=== PATIENT | female | born 1995 | race Caucasian/White ===

== ENCOUNTER 2019-12-14 08:11 | Outpatient (CLI) | payer OTHER, SELFPAY ==
--- NOTE | ~2019-12-14 | US_ITS ---
EXAMINATION: US transvaginal DATE: 12/14/2019 08:37 INDICATION: Pelvic and peroneal pain Comparison:09/07/2019 TECHNIQUE: Multiple endovaginal sonographic images of the pelvis performed. FINDINGS: The uterus measures 7.4 x 3.4 x 4.3 cm. There is in IUD in the endometrium. The endometrial complex measures 3 mm. The right ovary measures 3.2 x 2.1 x 3.2 cm and the left ovary measures 3 x 2.8 x 4.1 cm. There are small follicles in each ovary. There is a complicated 1.7 cm left ovarian cysts There is no free fluid in the pelvis. There are no abnormal masses seen on either side. IMPRESSION: 1. . Complicated 1.7 cm left ovarian cyst. Reviewed, dictated and finalized at location A.
== END 2019-12-14 08:12 ==
PROVIDERS: Visit Provider Obstetrics & Gynecology Gynecology
DX: R10.2 Pelvic and perineal pain (principal); N83.202 Unspecified ovarian cyst, left side
CPT/HCPCS: 76830

== ENCOUNTER 2021-05-16 10:58 | Outpatient (RCR) | payer OTHER, SELFPAY ==
--- NOTE | ~2021-05-16 | US_ITS ---
EXAMINATION: US OB limited DATE: 05/16/2021 12:53 INDICATION: Placental assessment and well-being after fall during third trimester TECHNIQUE: Real-time ultrasound of the pelvis was performed. The interpreting radiologist was not pre sent for the study. COMPARISON: 12/14/2019 FINDINGS: There is a single living fetus in vertex presentation. The placenta is anterior. card iac activity and movement are noted. heart rate is 150 beats per minute (bpm). The amniot ic fluid index is subjectively normal. IMPRESSION: 1. Single living fetus in vertex presentation. 2. Grossly normal placenta without evidence of previa or abruption. However, acute hemorrhage can be isoechoic to the placenta. Recommend continued clinical followup. Reviewed, dictated and finalized at location A. IMPRESSION: 1. Single living fetus in vertex presentation. 2. Grossly normal placenta without evidence of previa or abruption. However, a cute hemorrhage can be isoechoic to the placenta. Recommend continued clinical followup.
--- NOTE | 2021-05-16 12:35 | PC.NURSE ---
1227-Dr.Dalla Sosa called, informed pt came in as instructed by his office for a post fall from this am. Pt states she fell hard on her back and butt. Denies hitting her abdomen, pt states she has RH negative blood type and denies any cramping or gypsy. Pt feels some pressure in her vaginal area. FHR is appropriate for gestational age and no contractions noted. Robyn velez and US ordered.
[2021-05-16 12:36] VITALS: BP 130/71; PULSE 88
== END 2021-08-14 23:59 | disposition home or self-care (01) ==
LOC: ANHOBOP 10:58
PROVIDERS: Visit Provider Obstetrics & Gynecology
DX: O99.892 Other specified diseases and conditions complicating childbirth (principal); W19.XXXA Unspecified fall, initial encounter; Z3A.25 25 weeks gestation of pregnancy
CPT/HCPCS: 36415; 59025; 76815; 85460

== ENCOUNTER 2021-06-29 08:39 | Outpatient (RCR) | payer OTHER, SELFPAY ==
[2021-07-02] MEDS: RHO(D) IMMUNE GLOBULIN 300 MCG/2 ML SYRINGE IM (08:56)
== END 2021-09-27 23:59 | disposition home or self-care (01) ==
LOC: ANHLAB 08:39
PROVIDERS: Visit Provider Obstetrics & Gynecology
DX: Z29.13 Encounter for prophylactic Rho(D) immune globulin (principal); O36.0190 Maternal care for anti-D [Rh] antibodies, unspecified trimester, not applicable or unspecified; Z3A.00 Weeks of gestation of pregnancy not specified
CPT/HCPCS: 36415; 85461; 90384; 96372; J2790

== ENCOUNTER 2021-07-22 13:34 | Outpatient (CLI) | payer OTHER, SELFPAY ==
--- NOTE | ~2021-07-22 | US_ITS ---
EXAMINATION: US OB BPP wo non-stress EXAM DATE: 07/22/2021 14:54 INDICATION: non-reactive stress test. 3rd trimester. TECHNIQUE: Pelvic obstetrical transabdominal sonogram was performed by a technologist. There are mu ltiple grayscale and Doppler images available for interpretation. Comparison is made to prior examina tion from 05/16/2021. FINDINGS: There is a single fetus identified in vertex presentation with a heart rate of 148 beats pe r minute. The placenta is located in the anterior position. There is no sonographic evidence of retr oplacental hemorrhage identified. BIOPHYSICAL PROFILE (performed by the technologist) breathing (30 sec sustained breathing in 30 minutes): 2 out of 2 movement (3 gross body movements in 30 minutes): 2 out of 2 tone (one episode of crresnc-bvjfqtlxe-sekprpz limb movement): 2 out of 2 Amniotic fluid pocket (2 cm): 2 out of 2 Total score: 8 out of 8 IMPRESSION: 1. Single fetus with heart rate of 148 bpm. 2. Normal biophysical profile score of 8 out of 8. Reviewed, dictated and finalized at location A. [employer]
[2021-07-22 14:09] VITALS: BP 119/74; PULSE 110
--- NOTE | 2021-07-22 14:54 | PM.OBTRLD ---
OB - Triage/Final Diagnosis Visit Information Date of evaluation: 07/22/21 Reason for evaluation: threatened labor and other (r/o PPROM) Comments/Additional reasons for admission: I have assessed the risk for this patient, Radha Eliud Chaney, and determined that she would benefit from observation care. Evaluation Baseline heart rate: 150 Variability: Moderate (11-25) monitor accelerations: Absent monitor decelerations: Variable Comments: BPP was performed and scored an 8/8 with adequate amniotic fluid.
[2021-07-22 16:00] LABS: Add Urine Microscopic? YES; Appearance Urine Clear (Clear); Bilirubin Urine Negative (Negative); Blood Urine Negative (Negative); Color Urine Straw (Yellow); Glucose Urine UA 1+ mg/dL (Negative); Ketones Urine Negative (Negative); Leukocyte Esterase Ur Negative LEU/UL (Negative); Nitrate Urine Negative (Negative); Protein Urine Negative (Negative); RBC Urine 0-2 /hpf (0-2); Specific Grav Ur 1.003 (1.001-1.035); Squamous Epithelial Cell Urine Few /hpf (Few); Urobilinogen Urine Negative mg/dL (<2.0); WBC Urine 0-3 /hpf
== END 2021-07-22 15:00 | disposition home or self-care (01) ==
PROVIDERS: Visit Provider Student in an Organized Health Care Education/Training Program
DX: O41.8X90 Other specified disorders of amniotic fluid and membranes, unspecified trimester, not applicable or unspecified (principal); Z3A.00 Weeks of gestation of pregnancy not specified
CPT/HCPCS: 59025; 76819; 81001; 84112

== ENCOUNTER 2021-08-16 05:53 | Inpatient (IN) | payer OTHER, SELFPAY ==
[2021-08-16] VITALS (77 sets, daily range): BP systolic 84–159; BP diastolic 44–102; PULSE 69–117; RESP 16–18; TEMP 36.4–37.4; O2SAT 97–100; BMI 33.7
--- NOTE | 2021-08-16 06:23 | PM.IMHP ---
H&P: HPI History of Present Illness Date/Time: 08/16/21 06:23 Issue to her last menstrual period was 11/20/2020, EDC is 08/27/2021, confirmed by 11 week ultrasound presents at 38 half weeks gestation for induction of labor secondary to elevated blood pressures. Patient's had been fairly unremarkable she received COVID vaccine in April 2021. Her blood pressures elevated PIH labs have been normal however with some mild headache and near term she is admitted for induction secondary to these elevated pressures. She is negative for group B strep Chief Complaint: elevated blood pressure at term Review of Systems Review of Systems: All systems reviewed & are unremarkable except as noted in HPI and below PMFSH Family History Family History Father Lupus Grandparent Prostate carcinoma Other Heart disease Social History Social History Substance use: never Spiritual care concerns: No Meds Home Medications and Allergies Home Medications Medication Instructions Recorded Confirmed Type prenat.vits,milli,vyw-kjcs-lezvl 1 tablet PO DAILY 08/04/21 08/04/21 History [ #2] Allergies Allergy/AdvReac Type Severity Reaction Status Date / Time No Known Allergies Allergy Unknown Verified 11/01/14 15:22 Exam Const: General: no acute distress Eyes: General: appearance normal, both eyes and all related structures Neck: Neck: supple and no JVD Thyroid: thyroid normal Resp: Effort & Inspection: normal respiratory effort Auscultation: clear to auscultation bilaterally Cardio: Rate: regular rate Rhythm: regular rhythm GI: Inspection: non-distended GI Palp: Yes Soft to palpation, No Tenderness to palpation present (GI) and No Guarding due to palpation present (GI) Auscultation: normal bowel sounds : External Female Exam: normal external appearance Speculum Exam - Vagina: normal appearance of the vagina Speculum Exam - Cervix: normal appearance of the cervix ( cervix 2/ 80/-1. AROM clear. FHT is reassuring) Bimanual exam- vagina & uterus: enlarged Skin: General skin exam: no rashes or lesions noted Extrem: General: normal to inspection and no edema Psych: Mental Status: mental status grossly normal Affect: normal affect Assessment and Plan Additional Plan impression: 30 and half week with elevated blood pressures Plan: Medical for labor. Spontaneous read full delivery is expected. She has an epidural candidate. PIH labs will be drawn
[2021-08-16 06:45] LABS: Basophils Percent Auto 0.2 % (0.2-1.2); Eosinophils Percent Auto 0.5 % (0-4.4); Hematocrit 31.4 % (37.0-47.0); Hemoglobin 10.5 g/dL (12.0-15.0); Immature Granulocyte Absolute 0.04 K/mm3 (0.00-0.031); Immature Granulocyte Percent A 0.5 % (0-0.5); Lymphocytes Absolute Auto 1.79 K/mm3 (0.9-3.2); Lymphocytes Percent Auto 21.4 % (18.3-44.2); Mean Corpuscular HGB Conc 33.4 g/dl (32-36); Mean Corpuscular Hemoglobin 28.4 pg (26-34); Mean Corpuscular Volume 84.9 fl (80-100); Mean Platelet Volume 12.2 fl (7.4-10.4); Monocytes Absolute Auto 0.7 K/mm3 (0.1-0.6); Monocytes Percent Auto 7.8 % (2.6-8.5); Neutrophils Absolute Auto 5.8 K/mm3 (1.3-6.7); Neutrophils Percent Auto 69.6 % (45.5-73.1); Platelet Count Result 199 k/mm3 (150-375); Red Cell Distribution Width 14.2 % (11.5-14.5); White Blood Count 8.4 K/mm3 (4.5-10.0)
[2021-08-16] MEDS: OXYTOCIN 30 UNITS/NS 500 ML 30 UNITS/500 ML BAG IV CONT (06:49)
[2021-08-16] MEDS: LACTATED RINGERS 1,000 ML 125 ML IV CONT ×3 (06:50→13:33)
--- NOTE | 2021-08-16 07:02 | LDADM ---
This patient, Radha Chaney, was admitted to Labor/Delivery/Recovery 104 on 08/16/21 at 05:53. Plans for labor, pain management and were discussed with patient. Patient/family oriented to hospital policies and general routines including ID bracelet, bed and alarms, visiting hours, pain management, procedures, bathroom and other care routines, personal items, smoking policy, room service/diet and guest tray routines, infant security routines, and visiting hours. Patient/Family are encouraged to report perceived risks to care and to ask questions if they do not understand what they are told or what they should do. See OBIX for further documentation.
[2021-08-16 07:08] LABS: Alanine Aminotransferase 25 U/L (4-35); Albumin Level 3.2 g/dL (3.5-5.1); Alkaline Phosphatase 206 U/L (38-126); Anion Gap 6 mmol/L (8-16); Aspartate Amino Transferase 38 U/L (14-36); Bilirubin,Total 0.3 mg/dL (0.2-1.3); Calcium 8.3 mg/dL (8.4-10.2); Carbon Dioxide 25 mmol/L (22-30); Chloride 100 mmol/L (98-107); Estimated CRCL calculation 154 ml/min; Estimated Glomerular Filt Rate > 60; Glucose 137 mg/dL (65-110); Potassium 2.2 mmol/L (3.4-5.0); Sodium 131 mmol/L (137-145); Uric Acid 4.6 mg/dL (2.5-7.5)
[2021-08-16] MEDS: POTASSIUM CHLORIDE 20 MEQ TABLET PO (08:47)
[2021-08-16 09:36] LABS: Potassium 2.3 mmol/L (3.4-5.0)
--- NOTE | 2021-08-16 09:36 | WPDANESEPP ---
Anes - Eval Pre Procedure Procedure: labor epidural Date/Time: 08/16/21 09:36 Surgeon: harjit Preop Diagnosis: pain during labor Pre Op Diagnosis: IOL Patient Data Age: 25 Gender: F Height: 1.63 m Weight: 89 kg Last Vital Signs Temp 36.5 C 08/16/21 08:30 Pulse 88 08/16/21 09:16 BP 133/62 08/16/21 09:16 Allergies Allergy/AdvReac Type Severity Reaction Status Date / Time No Known Allergies Allergy Unknown Verified 11/01/14 15:22 Home Medications Medication Instructions Recorded Confirmed Type prenat.vits,milli,ksi-jfmy-ztjim 1 tablet PO DAILY 08/04/21 08/04/21 History [ #2] Laboratory Tests 08/16/21 08/16/21 08/16/21 06:17 06:17 06:17 WBC 8.4 K/mm3 K/mm3 (4.5-10.0) RBC 3.70 M/mm3 L M/mm3 (4.2-5.4) Hgb 10.5 g/dL L g/dL (12.0-15.0) Hct 31.4 % L % (37.0-47.0) MCV 84.9 fl fl (80-100) MCH 28.4 pg pg (26-34) MCHC 33.4 g/dl g/dl (32-36) RDW 14.2 % % (11.5-14.5) Plt Count 199 k/mm3 k/mm3 (150-375) MPV 12.2 fl H fl (7.4-10.4) Immature Gran % (Auto) 0.5 % % (0-0.5) Neut % (Auto) 69.6 % % (45.5-73.1) Lymph % (Auto) 21.4 % % (18.3-44.2) [place] % (Auto) 7.8 % % (2.6-8.5) Eos % (Auto) 0.5 % % (0-4.4) Baso % (Auto) 0.2 % % (0.2-1.2) Lymph # (Auto) 1.79 K/mm3 K/mm3 (0.9-3.2) [place] # (Auto) 0.7 K/mm3 H K/mm3 (0.1-0.6) Eos # (Auto) 0.0 K/mm3 K/mm3 (0-0.3) Baso # (Auto) 0.0 K/mm3 K/mm3 (0.0-0.1) Abs Immat Gran (auto) 0.04 K/mm3 H K/mm3 (0.00-0.031) Absolute Neuts (auto) 5.8 K/mm3 K/mm3 (1.3-6.7) Absolute Nucleated RBC 0.0 K/mm3 K/mm3 (0.0-0.012) Nucleated RBC % 0.0 % % (0.0-0.2) Sodium 131 mmol/L L mmol/L (137-145) Potassium 2.2 mmol/L L* mmol/L (3.4-5.0) Chloride 100 mmol/L mmol/L (98-107) Carbon Dioxide 25 mmol/L mmol/L (22-30) Anion Gap 6 mmol/L L mmol/L (8-16) BUN Pending Creatinine 0.50 mg/dL L mg/dL (0.7-1.0) Estim Creat Clear Calc 154 ml/min ml/min Estimated GFR > 60 (59 - ) Glucose 137 mg/dL H mg/dL (65-110) Uric Acid 4.6 mg/dL mg/dL (2.5-7.5) Calcium 8.3 mg/dL L mg/dL (8.4-10.2) Total Bilirubin 0.3 mg/dL mg/dL (0.2-1.3) AST 38 U/L H U/L (14-36) ALT 25 U/L U/L (4-35) Alkaline Phosphatase 206 U/L H U/L (38-126) Total Protein 6.0 g/dL L g/dL (6.3-8.2) Albumin 3.2 g/dL L g/dL (3.5-5.1) RPR Pending 08/16/21 09:18 WBC RBC Hgb Hct MCV MCH MCHC RDW Plt Count MPV Immature Gran % (Auto) Neut % (Auto) Lymph % (Auto) [place] % (Auto) Eos % (Auto) Baso % (Auto) Lymph # (Auto) [place] # (Auto) Eos # (Auto) Baso # (Auto) Abs Immat Gran (auto) Absolute Neuts (auto) Absolute Nucleated RBC Nucleated RBC % Sodium Potassium 2.3 mmol/L L* mmol/L (3.4-5.0) Chloride Carbon Dioxide Anion Gap BUN Creatinine Estim Creat Clear Calc Estimated GFR Glucose Uric Acid Calcium Total Bilirubin AST ALT Alkaline Phosphatase Total Protein Albumin RPR Patient hx anesthesia problems: none Family hx anesthesia problems: none Results Review: All pre-operative results and documents have been reviewed as part of the pre-operative evaluation. COUNT INCLUDES THE [facility] Past Medical History Medical History (Updated 08/16/21 @ 09:37 by Charlotte Berg CRNA) IUP (intrauterine ), incidental Family History Family History (Reviewed 08/16/21 @ 06:24 by Hayden
[2021-08-16 09:57] LABS: Blood Urea Nitrogen < 2 mg/dL (7-17)
[2021-08-16 13:25] LABS: Rapid Plasma Reagin Non-Reactive (NonReactive)
--- NOTE | 2021-08-16 14:51 | PM.OBPNLAB ---
Pain Control Date/time seen: 08/16/21 14:51 Pain control: tolerating well and epidural Pelvic Exam Dilation (cm): 3 Effacement (%): 90 station: -1 Amniotic membrane status: Ruptured Contractions Monitor mode: Internal Contraction pattern: Regular
[2021-08-16] MEDS: ONDANSETRON INJ 4 MG/2 ML VIAL IV PUSH (15:37)
--- NOTE | 2021-08-16 18:16 | P.PCNOB_ITS ---
OB - Delivery Note Procedure Procedure: Patient pushed for a spontaneous vaginal delivery. The fetus was delivered atraumatically and placed on the maternal abdomen. The cord was clamped and cut after 1 minute of life. The cord was double clamped and cut and a segment of cord was collected for cord gases. Cord blood was collected for blood type and Coomb's testing. The placenta delivered spontaneously and was noted to be intact. The perineum was inspected and there were no lacerations noted. The uterus was firm and good hemostasis was noted. The patient and fetus were stable in the delivery room. events: Induced HTN Intrapartal events: None Induction method: per pitocin protocol Delivery augmentation: rupture of membranes Delivery monitor: external FHT Route of delivery: Episiotomy description: None Laceration Description: None Specimen: No Quantitative Blood Loss (ml): 150 Anesthesia type: Epidural Disposition: floor () Complications: No immediate complications [place] Baby Date of : 08/16/21 Time of : 08:06 Weeks of gestation at delivery: 38 gender: Male Weight (pounds): 6 Weight (ounces): 12 presentation: vertex position: Right Occiput Anterior Placenta delivery description: Spontaneous cord vessel description: 3 Vessels and Nuchal Cord score one minute: 9 score five minutes: 9
[2021-08-16] MEDS: OXYTOCIN 30 UNITS/NS 500 ML 30 UNITS/500 ML BAG 125 UNITS IV CONT (18:29)
[2021-08-16] MEDS: TRANEXAMIC ACID 1,000MG/ISO100 1,000 MG/100 ML BAG 200 MG IVPB (18:51)
[2021-08-16] MEDS: BENZOCAINE 20% AER SPR (*SP) 56 GM CAN 1 SPRAY TOPICAL (20:26)
[2021-08-16] MEDS: IBUPROFEN 600 MG TABLET PO (20:26)
[2021-08-16] MEDS: WITCH HAZEL 40 PADS 1 PAD TOPICAL (20:26)
--- NOTE | 2021-08-16 21:03 | OBPPTRN ---
Patient transferred to post room #291 via wheelchair. Support person present. Oriented to unit, room, information board, rooming in, admission packet and security measures. Patient verbalizes understanding.
[2021-08-16] MEDS: POTASSIUM CHLORIDE 20 MEQ PACKET (FOR LIQUID) 80 MEQ PO (21:20)
[2021-08-17 00:20] VITALS: BP 129/70; PULSE 77; RESP 16; TEMP 37.1
[2021-08-17 05:45] VITALS: BP 133/87; PULSE 77; RESP 16; TEMP 36.8
[2021-08-17] MEDS: IBUPROFEN 600 MG TABLET PO ×3 (05:55→21:50)
[2021-08-17 06:00] LABS: Hematocrit 31.5 % (37.0-47.0); Hemoglobin 10.3 g/dL (12.0-15.0)
[2021-08-17 06:22] LABS: Anion Gap 4 mmol/L (8-16); Calcium 8.4 mg/dL (8.4-10.2); Carbon Dioxide 26 mmol/L (22-30); Chloride 106 mmol/L (98-107); Estimated CRCL calculation 154 ml/min; Estimated Glomerular Filt Rate > 60; Glucose 75 mg/dL (65-110); Potassium 2.7 mmol/L (3.4-5.0); Sodium 136 mmol/L (137-145)
[2021-08-17 06:24] LABS: Blood Urea Nitrogen < 2 mg/dL (7-17)
--- NOTE | 2021-08-17 07:03 | PM.OBPNVD ---
OB - PN: Subj Subjective Date/time seen: 08/17/21 07:03 Patient comments: no complaints and pain well controlled baby status: doing well and nursing well OB - PN: Obj Data Labs CBC & Chem 7: 08/17/21 05:49 08/17/21 05:49 Labs: Laboratory Results - last 24 hr 08/16/21 08/16/21 08/16/21 06:17 06:17 06:17 Hgb Hct Sodium 131 L Potassium 2.2 L* Chloride 100 Carbon Dioxide 25 Anion Gap 6 L BUN < 2 L Creatinine 0.50 L Estim Creat Clear Calc 154 Estimated GFR > 60 Glucose 137 H Uric Acid 4.6 Calcium 8.3 L Total Bilirubin 0.3 AST 38 H ALT 25 Alkaline Phosphatase 206 H Total Protein 6.0 L Albumin 3.2 L RPR Non-reactive Blood Type O Negative Antibody Screen Positive Antibody Identification Inconclusive Antigen Identification TNP SOPHIA, IgG Interpret Not Performed SOPHIA, Poly Interpret Negative SOPHIA, Complement Interp Not Performed 08/16/21 08/17/21 08/17/21 09:18 05:49 05:49 Hgb 10.3 L Hct 31.5 L Sodium 136 L Potassium 2.3 L* 2.7 L* Chloride 106 Carbon Dioxide 26 Anion Gap 4 L BUN < 2 L Creatinine 0.50 L Estim Creat Clear Calc 154 Estimated GFR > 60 Glucose 75 Uric Acid Calcium 8.4 Total Bilirubin AST ALT Alkaline Phosphatase Total Protein Albumin RPR Blood Type Antibody Screen Antibody Identification Antigen Identification SOPHIA, IgG Interpret SOPHIA, Poly Interpret SOPHIA, Complement Interp OB - PN A/P Plan day: 1 Plan: routine care Time Spent With Patient Time: Total time spent is greater than 50% in coordination of care (as documented) at patient's floor/unit and/or counseling patient: Time with patient: less than 15 minutes Review of Systems Review of Systems: All systems reviewed & are unremarkable except as noted in HPI and below Exam Const: General: no acute distress Eyes: General: appearance normal, both eyes and all related structures Neck: Neck: supple and no JVD Thyroid: thyroid normal Resp: Effort & Inspection: normal respiratory effort Auscultation: clear to auscultation bilaterally Cardio: Rate: regular rate Rhythm: regular rhythm GI: Inspection: non-distended GI Palp: Yes Soft to palpation, No Tenderness to palpation present (GI) and No Guarding due to palpation present (GI) Auscultation: normal bowel sounds : General: Yes bladder normal to palpation External Female Exam: normal external appearance Speculum Exam - Vagina: normal vaginal discharge and No vaginal bleeding Speculum Exam - Cervix: nontender Bimanual exam- vagina & uterus: bladder normal to palpation and No Cervical tenderness present OB/external & speculum: No vaginal bleeding Skin: General skin exam: no rashes or lesions noted Extrem: General: normal to inspection and no edema Psych: Mental Status: mental status grossly normal Affect: normal affect
[2021-08-17] MEDS: MULTIVIT/MIN/PREN/FOL AC/IRON TABLET 1 TAB PO (08:17)
[2021-08-17 08:50] VITALS: BP 121/75; PULSE 63; RESP 16; TEMP 36.9; O2SAT 98
[2021-08-17] MEDS: POTASSIUM CHLORIDE 20 MEQ TABLET PO (08:50)
--- NOTE | 2021-08-17 10:03 | WPDANLDPN2 ---
Anes-Prog Note L&D Date/Time: 08/17/21 10:03 Comfortable throughout: labor and delivery Neuraxial method: epidural Epidural/Spinal procedure site: clean & non-tender Neuro status: Neuro function grossly intact. Cardiovascular status: normal Respiratory status: normal Airway patency: baseline Mental status: baseline Post-Op hydration status: normal Vital Signs: Last Vital Signs Temp 36.9 C 08/17/21 08:50 Pulse 63 08/17/21 08:50 Resp 16 08/17/21 08:50 BP 121/75 08/17/21 08:50 Pulse Ox 98 08/17/21 08:50 Pain score (VAS): 0 I/O: Intake & Output 08/16/21 08/17/21 08/17/21 23:59 07:59 15:59 Intake Total 1600 1300 1000 Output Total 1041 1600 900 Balance 559 -300 100 Post-procedural complaints: none Patient feedback: Patient satisfied with anesthetic care.
--- NOTE | 2021-08-17 10:15 | PC.NURSE ---
Mother called out for assist with feeding, reporting has difficulties latching to left breast. Mother has tender nipples with feeding. Mother breastfed first child for several months without issue. is able to freely thrust tongue past gum ridge and flange both lips. Skin is intact on both nipples, slight redness and no bruising noted. Nipple care reviewed of lanolin after feedings, warm compresses as needed. Reviewed feeding cues, frequencies, duration of feedings, feeding elimination flow sheet, and signs of adequate intake. Demonstrated stimulation techniques to wake infant for feeding. Mother puts to breast in cradle position, allowing to self latch with shallow latch. requested mother release latch reviewing cross cradle. Assisted with infant to breast. Reviewed positioning/alignment in cross cradle, holding breast in ?U? hold and guided asymmetrical latch on. Reviewed rational for each. able to latch correctly within a few attempts. nursed eagerly with steady draws and occasional swallowing noted, some pausing noted. Reviewed signs of a correct latch, effective nursing and suck swallow ratio. Suggested mother stimulate while feeding to increase stimulation for milk supply, for increased intake and to assist with maintaining deep latch. Infant would slip to shallow latch causing tenderness. Demonstrated how to adjust latch more deeply while feeding as needed. Mother reports she can feel the difference in latch with no tenderness. Mother wanted to switch to cradle, advised to continue to hold breast during entire feeding to assist with maintaining deep latch. Instructed mother to call out for RN assistance if she is unable to latch infant for feeding or she has discomfort with nursing. Instructed feeding should be initiated three hours from start of last feeding or if feeding cues are noted before. Mother voiced understanding of information shared. Mother reports she plans on discharge later this day. Mother is able to independently latch with appropriate positioning/alignment. She denies any nipple discomfort, is feeding as required and waking infant to feed if needed. Infant is feeding s required since , and is currently meeting outcomes for weight, output, jaundice and feeding frequencies. Mother states she feels confident to continue effective at home. Reviewed transition to breast milk, signs of adequate intake, and engorgement/relief. Instructed to call ICP if intake/output less than required. Reviewed regular medications mother is taking. Information provided per Mary Jo. Reviewed community resources on the [facility] website and in the Mom/Baby guide. Information on outpatient services provided. Mother has no further questions at this time.
[2021-08-17 11:31] VITALS: BP 123/86; PULSE 73; RESP 18; TEMP 36.6; O2SAT 98
[2021-08-17] MEDS: LANOLIN (LANSINOH) 7.5 GM CREAM 1 APPLIC TOPICAL (14:10)
[2021-08-17 16:40] VITALS: BP 133/77; PULSE 76; RESP 16; TEMP 37.1
[2021-08-17 20:40] VITALS: BP 133/73; PULSE 83; RESP 16; TEMP 36.8
[2021-08-18 05:10] VITALS: BP 123/70; PULSE 70; RESP 16; TEMP 36.7
[2021-08-18 05:55] LABS: Anion Gap 1 mmol/L (8-16); Blood Urea Nitrogen 2 mg/dL (7-17); Carbon Dioxide 30 mmol/L (22-30); Chloride 102 mmol/L (98-107); Estimated CRCL calculation 154 ml/min; Estimated Glomerular Filt Rate > 60; Glucose 78 mg/dL (65-110); Potassium 2.7 mmol/L (3.4-5.0); Sodium 133 mmol/L (137-145)
--- NOTE | 2021-08-18 07:13 | PM.OBPNVD ---
OB - PN: Subj Subjective Date/time seen: 08/18/21 07:13 no complaints OB - PN: Obj Data Labs CBC & Chem 7: 08/17/21 05:49 08/18/21 05:23 Labs: Laboratory Results - last 24 hr 08/18/21 05:23 Sodium 133 L Potassium 2.7 L* Chloride 102 Carbon Dioxide 30 Anion Gap 1 L BUN 2 L Creatinine 0.50 L Estim Creat Clear Calc 154 Estimated GFR > 60 Glucose 78 Calcium 8.0 L OB - PN A/P Plan day: 2 Plan: routine care, discharge home and follow up 6 weeks Comments: Potassium still low today after replacement. We will obtain hospitalist consultation prior to discharge Time Spent With Patient Time: Total time spent is greater than 50% in coordination of care (as documented) at patient's floor/unit and/or counseling patient: Time with patient: less than 15 minutes Review of Systems Review of Systems: All systems reviewed & are unremarkable except as noted in HPI and below Exam Const: General: no acute distress Eyes: General: appearance normal, both eyes and all related structures Neck: Neck: supple and no JVD Thyroid: thyroid normal Resp: Effort & Inspection: normal respiratory effort Auscultation: clear to auscultation bilaterally Cardio: Rate: regular rate Rhythm: regular rhythm GI: Inspection: non-distended GI Palp: Yes Soft to palpation, No Tenderness to palpation present (GI) and No Guarding due to palpation present (GI) Auscultation: normal bowel sounds : General: Yes bladder normal to palpation External Female Exam: normal external appearance Speculum Exam - Vagina: normal vaginal discharge and No vaginal bleeding Speculum Exam - Cervix: nontender Bimanual exam- vagina & uterus: bladder normal to palpation and No Cervical tenderness present OB/external & speculum: No vaginal bleeding Skin: General skin exam: no rashes or lesions noted Extrem: General: normal to inspection and no edema Psych: Mental Status: mental status grossly normal Affect: normal affect
[2021-08-18 07:25] VITALS: BP 130/82; PULSE 68; RESP 18; TEMP 37; O2SAT 98
[2021-08-18] MEDS: KCL 20 MEQ/SW 100 ML 100 ML 50 MEQ IVPB ×3 (10:39→14:51)
[2021-08-18] MEDS: IBUPROFEN 600 MG TABLET PO (10:40)
[2021-08-18] MEDS: MULTIVIT/MIN/PREN/FOL AC/IRON TABLET 1 TAB PO (10:40)
[2021-08-18] MEDS: SODIUM CHLORIDE 0.9% IV 1,000 ML 50 ML (11:05)
[2021-08-18 11:33] VITALS: BP 130/78; PULSE 72; RESP 16; TEMP 36.6; O2SAT 97
[2021-08-18 13:45] LABS: Magnesium 1.6 mg/dL (1.6-2.3)
--- NOTE | 2021-08-18 14:00 | PC.NURSE ---
Patient instructed on viewing the discharge video Mother & Baby Care, The First Two Weeks . Patient was given the opportunity and encouraged to ask questions. Patient verbalized understanding of information shared and has been given the mother/baby guide for home reference.
--- NOTE | 2021-08-18 14:36 | PC.NURSE ---
0925 present with pt for baby's feeding at this time; reviewed positioning, alignment, use of c-hold, nose to nipple latch on technique, and how to assess for deep latch, with importance of deep latch and maintained deep latch. Mother reports her L side nipple very sore; baby had nursed on R side for about 5 minutes when nurse came to room; he was awake and eager; baby latched to mother's L side, with apparent deep latch; mother reported definite latch on pain; nurse taught mother how to adjust to deeper latch while on the breast, and after 1-2 minutes, mother reported much less pain, but still some tenderness, but that this latch, definitely the best and most comfortable. Reviewed nipple care. Also reviewed use of feeding log to monitor feedings, 8-12 a day, and output per day of age. Pt shown her Mother Baby Guide, and breast feeding pages flagged for her to review prior to discharge home later today. LC contact information shown to pt as well. Mother was encouraged to call for nurse at the next feeding if still concerns or if she had questions. Mother reports she feels as if her milk is starting to come in. She reports a strong breast feeding history with her first baby. FOB present; both parents attentive and voiced understanding of information shared.
--- NOTE | 2021-08-18 15:18 | P.HP_ITS ---
H&P: HPI History of Present Illness Date/Time: 08/18/21 1400 this is a 25-year-old female patient 2 para 2. Patient EDC was 08/27/2021. The patient stated that she had no problems with her blood pressure until this past week. It was decided that the patient would be induced a week earlier than what had been plan. The patient stated that she was induced with Pitocin and was given trnexamix acid to prevent hemorrhage as she had problems with post hemorrhaging with her 1st son. The patient d enies any nausea vomiting or diarrhea. The patient stated that she vomited 1 time after her epidural was placed but other than that she has not been having any vomiting. No diarrhea and she has not been on any diuretics. The patient had a vaginal delivery on 08/16/[address] xochilt guerrero. Please see delivery note. On 08/16/2021 her potassium was 2.2 and has come up to 2.7 today. The hospitalist group was asked to consult on the patient due to her low potassium. We also decided to check her magnesium which was borderline 1.6. The patient has received 3 doses of 20 mg KCL IV today. The patient was receiving her potassium rider when I entered the room. Patient had no complaints except for some left leg pain and she felt that her left leg was swollen more than normal. Patient stated that she is having some cramping in her legs to the low potassium. Since the patient is borderline on her magnesium I did order 2 g of magnesium IV for the patient. [facility] Past Medical History Medical History (Updated 08/16/21 @ 09:37 by Charlotte Berg CRNA) IUP (intrauterine ), incidental Family History Family History Father Lupus Grandparent Prostate carcinoma Other Heart disease Social History Social History Smoking status: Never smoker Substance use: never Spiritual care concerns: No Meds Home Medications and Allergies Home Medications Medication Instructions Recorded Confirmed Type prenat.vits,milli,msc-tetp-etnqx 1 tablet PO DAILY 08/04/21 08/04/21 History [ #2] Allergies Allergy/AdvReac Type Severity Reaction Status Date / Time No Known Allergies Allergy Unknown Verified 11/01/14 15:22 Vital Signs Vital Signs - 24 hr 08/17/21 16:40 08/17/21 20:40 08/18/21 05:10 Temperature 37.1 C 36.8 C 36.7 C Pulse Rate 76 83 70 Respiratory Rate 16 16 16 Blood Pressure 133/77 133/73 123/70 Pulse Oximetry 08/18/21 07:25 08/18/21 11:33 Temperature 37.0 C 36.6 C Pulse Rate 68 72 Respiratory Rate 18 16 Blood Pressure 130/82 130/78 Pulse Oximetry 98 97 H&P: Results Labs Labs: [facility] 08/18/21 05:23 Sodium 133 L Potassium 2.7 L* Chloride 102 Carbon Dioxide 30 BUN 2 L Creatinine 0.50 L Glucose 78 Calcium 8.0 L
--- NOTE | 2021-08-18 15:30 | PM.IMCN ---
Assessment and Plan Assessment and plan (1) Hypokalemia: Code(s): E87.6 - Hypokalemia Status: Acute Assessment and Plan: Unsure of etiology. The patient has not had any nausea vomiting or diarrhea. No loss of fluids. Replace as necessary. Will also refer replace her magnesium even though was borderline at 1.6. Will recheck again tonight. (2) Anemia: Code(s): D64.9 - Anemia, unspecified Status: Chronic Assessment and Plan: The patient stated that she had anemia peripartum. She stated that she had significant blood loss with her 1st child. However she was given tranexamic acid to prevent hemorrhage. Continue to monitor. The nurse explained to me that the patient had little vaginal bleeding . Continue with vitamins. (3) Hyponatremia: Code(s): E87.1 - Hypo-osmolality and hyponatremia Status: Acute Assessment and Plan: Could be related to Pitocin. She also has some edema to her lower extremities. She may have fluid shifting. (4) PIH ( induced hypertension): Code(s): O13.9 - Gestational [-induced] hypertension without significant proteinuria, unspecified trimester Status: Acute Assessment and Plan: Patient was induced 1 week earlier than previously planned. Patient did not have any problems with her blood pressure prior to the week before delivery. Patient's blood pressure is now 130/78. HPI Data of Consult Consult date: 08/18/21 Requesting Physician: Eduardo Ocasio MD Primary Care Provider: EQUIPMENT INSTALLATION PROFESSIONAL PHYSICIAN Consult Narrative Narrative: 08/18/21 1400 Radha feliciano a this is a 25-year-old female patient 2 para 2. Patient EDC was 08/27/2021. The patient stated that she had no problems with her blood pressure until this past week. It was decided that the patient would be induced a week earlier than what had been plan. The patient stated that she was induced with Pitocin and was given tranexamic acid to prevent hemorrhage as she had problems with post hemorrhaging with her 1st son. The patient denies any nausea vomiting or diarrhea. The patient stated that she vomited 1 time after her epidural was placed but other than that she has not been having any vomiting. No diarrhea and she has not been on any diuretics. The patient had a vaginal delivery on 08/16/[address] xochilt guerrero. Please see delivery note. On 08/16/2021 her potassium was 2.2 and has come up to 2.7 today. The hospitalist group was asked to consult on the patient due to her low potassium. We also decided to check her magnesium which was borderline 1.6. The patient has received 3 doses of 20 mg KCL IV today. The patient was receiving her potassium rider when I entered the room. Patient had no complaints except for some left leg pain and she felt that her left leg was swollen more than normal. Patient stated that she is having some cramping in her legs to the low potassium. Since the patient is borderline on her magnesium I did order 2 g of magnesium IV for the patient. The patient was admitted to inpatient and the hospitalist group has seen the patient as a consult. Review of Systems Review of Systems: All systems reviewed & are unremarkable except as noted in HPI and below Constitutional: Constitutional: Reports as per HPI and Reports no additional constitutional complaints Eyes: Eyes: Reports as per HPI and Reports no additional eye complaints ENT: Reports system reviewed and no additional complaints, except as documented and Reports Normal hearing present Cardiovascular: Cardiovascular: Reports no additional cardiovascular complaints Respiratory: Respiratory: Reports no additional respiratory complaints and Reports no additional respiratory complaints Gastrointestinal: Gastrointestinal: Reports as per HPI and Reports no additional gastrointestinal complaints Musculoskeletal: Musculoskeletal: Reports n
[2021-08-18] MEDS: TETANUS,DIPHTHERIA,AC PERTUSSIS ADULT (0.5 ML) BOOSTRIX IM (16:54)
[2021-08-18] MEDS: MAGNESIUM OXIDE 400 MG TABLET PO (16:59)
--- NOTE | 2021-08-21 09:40 | PM.DS ---
DS: Admitting Diagnosis Discharge Date 08/18/21 Admitting Diagnosis term with elevated blood pressure /hypokalemia DS: Summary Hospital Course Hospital Course: the patient was admitted for induction of labor secondary to elevated blood pressures. She underwent spontaneous vaginal delivery. It was noted her potassium was 2.2 and she really received several doses of oral potassium and it improved to 2.7. Consultation was made with hospitalist and she was given IV potassium. They suggested that she have a magnesium level and be followed and she refused. She will be followed up within a week to see another potassium level Time Spent with Patient Time attestation: Total time spent providing and/or coordinating discharge services: Exam Const: General: no acute distress Eyes: General: appearance normal, both eyes and all related structures Neck: Neck: supple and no JVD Thyroid: thyroid normal Resp: Effort & Inspection: normal respiratory effort Auscultation: clear to auscultation bilaterally Cardio: Rate: regular rate Rhythm: regular rhythm GI: Inspection: non-distended GI Palp: Yes Soft to palpation, No Tenderness to palpation present (GI) and No Guarding due to palpation present (GI) Auscultation: normal bowel sounds : General: Yes bladder normal to palpation External Female Exam: normal external appearance Speculum Exam - Vagina: normal vaginal discharge and No vaginal bleeding Speculum Exam - Cervix: nontender Bimanual exam- vagina & uterus: bladder normal to palpation and No Cervical tenderness present OB/external & speculum: No vaginal bleeding Skin: General skin exam: no rashes or lesions noted Extrem: General: normal to inspection and no edema Psych: Mental Status: mental status grossly normal Affect: normal affect Discharge Plan Discharge Attending physician on discharge: Eduardo Ocasio Consulting providers: Charu Tracey Discharging Clinician: Eduardo Ocasio Patient Disposition: Home, Self-Care Activity: pelvic rest Diet: regular Discharge Instructions: Education: Mom and Baby Guide Given to: Mother Follow-Up: Call your delivering provider's office for an appointment to be seen in: Saturday or Saturday next week Mom and baby should come to the [facility] for the follow-up appointment. Appointment Date/Time: August 21, 2021 at 11:00 am What to expect at your follow-up visit: Physical Assessment Call [phone] if you are unable to keep your appointment time. BREAST CARE: * Wear a snug supportive bra. * For engorgement discomfort: Breast Feeding: * Apply warm moist washcloths * Express milk as needed to relieve engorgement * Wear loose clothing * For sore nipples: * Identify correct latch-on * Apply warm moist washcloths before and after nursing * Air dry nipples after nursing * May apply Lansinoh cream to nipples EPISIOTOMY/PERINEAL CARE: * Until bleeding stops, use your nicolasa bottle after urinating * Change your pad frequently throughout the day * You may take sitz baths several times a day (fill your bathtub with warm water and soak for 20 minutes.) Do NOT bathe in the water * No tub baths until seen by your physician - You may shower ACTIVITY: * Rest as much as possible. * Do not exercise or lift anything heavier than your baby (such as laundry or other children.) * Avoid stairs or driving as much as possible. * Do not put anything into the vagina. No douching, tampons, or sexual activity until seen by physician. NOTIFY PHYSICIAN IF YOU HAVE ANY QUESTIONS OR IF ANY OF THE FOLLOWING SYMPTOMS OCCUR: * If your vaginal bleeding becomes foul smelling. * If your vaginal bleeding becomes more heavy than a period or if your bleeding changes from pink to bright red. However, you may pass an occasional walnut-sized clot once or twice for the first week post
[2021-08-21 11:16] VITALS: BP 143/88; PULSE 88; RESP 20; TEMP 36.8; O2SAT 100
== END 2021-08-18 17:47 | disposition home or self-care (01) | DRG 806 ==
LOC: ANHLDR 05:59 → ANHOB2 22:05
PROVIDERS: Hospitalist; Student in an Organized Health Care Education/Training Program; Admitting Provider Obstetrics & Gynecology; Visit Provider Obstetrics & Gynecology
DX: O16.4 Unspecified maternal hypertension, complicating childbirth (principal); E87.1 Hypo-osmolality and hyponatremia; Z37.0 Single live birth; Z3A.38 38 weeks gestation of pregnancy; O13.4 Gestational [pregnancy-induced] hypertension without significant proteinuria, complicating childbirth; O69.81X0 Labor and delivery complicated by cord around neck, without compression, not applicable or unspecified; O99.02 Anemia complicating childbirth; D64.9 Anemia, unspecified; E87.6 Hypokalemia
CPT/HCPCS: 36415; 80048; 80053; 83735; 84132; 84550; 85014; 85018; 85025; 86592; 86850; 86880; 86900; 86901; 86902; 90715; A9270; J2405; J2590; J2795; J3480; J7030; J7120

== ENCOUNTER 2021-08-21 11:00 | Outpatient (CLI) | payer OTHER, SELFPAY ==
[2021-08-21 11:51] LABS: Alanine Aminotransferase 31 U/L (4-35); Albumin Level 3.1 g/dL (3.5-5.1); Alkaline Phosphatase 143 U/L (38-126); Anion Gap 5 mmol/L (8-16); Aspartate Amino Transferase 36 U/L (14-36); Bilirubin,Total 0.3 mg/dL (0.2-1.3); Blood Urea Nitrogen 4 mg/dL (7-17); Calcium 8.3 mg/dL (8.4-10.2); Carbon Dioxide 30 mmol/L (22-30); Chloride 104 mmol/L (98-107); Estimated Glomerular Filt Rate > 60; Glucose 84 mg/dL (65-110); Potassium 3.2 mmol/L (3.4-5.0); Sodium 139 mmol/L (137-145)
== END 2021-08-21 11:01 | disposition home or self-care (01) ==
LOC: ANHOBOP 11:03
PROVIDERS: Visit Provider Obstetrics & Gynecology
DX: E87.6 Hypokalemia (principal)
CPT/HCPCS: 36415; 80053

== ENCOUNTER 2021-12-29 01:22 | Day surgery (SDC) | payer OTHER, SELFPAY ==
[2021-12-20 12:58] VITALS: BMI 29.2
--- NOTE | 2021-12-20 13:05 | PC.NURSE ---
Report to the Outpatient Waiting Room, entrance under the green pavilion located off [facility], at time 0930 on date 12/29/21. OR Time: 1130. - You and your visitor will be asked a series of questions to screen for COVID 19 for your protection. - A mask is required within the hospital. One visitor will be allowed to accompany the patient into the hospital. Patients visitor will be instructed to remain with patient at all times or leave the building. We will allow the visitor to come back to the postoperative area when patient is ready. Preoperative COVID Testing Requirements: No COVID Test needed if: (proof is required; if not received patient will have Rapid Test prior to entry) - Patient has received COVID Vaccine at least 14 days prior to procedure date or - Patient has positive COVID test result within last 90 days of surgery date. COVID Test needed if above criteria is not met Patients may have clear liquids (water, carbonated beverages, clear teas, apple juice) until 3 hours prior to surgery with a maximum of 20 ounces. - No food from midnight until time of surgery Take the following medications with a SIP of water the morning of surgery: NONE Medications to discontinue per physician: VITAMINS Date to take last dose: 12/25/21 Please no make-up, nail armenian, hairspray, perfume, deodorant, or body powder the day of surgery. No jewelry (including any body piercings) or valuables the day of surgery, leave them at home. Please take a shower or bath the night before, or the morning of, surgery with an antibacterial soap. Wear comfortable, loose fitting clothing. - Jewelry must be removed prior to entering the operating room. Rings and piercings that are not removed may be cut off. - The hospital will not accept responsibility for valuables. - Please leave all valuables, including medications, at home the day of surgery. If you are going home after surgery, a licensed milk driver must drive you home. - NO public transportation without another adult. - We recommend that an adult stay with you for 24 hours following discharge. - We also recommend that you do not drive, make important decision, drink alcoholic beverages, or take any drugs that were not prescribed by your health care provider for at least 24 hours after your discharge time. Follow any additional instructions given to you from your surgeon. Telephone instructions given to LEONA WALKER and asked if any additional questions and then verbalized understanding. Patient advised to call surgeon office or pre surgery nurse liaison [phone] if any additional questions.
--- NOTE | 2021-12-28 08:28 | P.HP_ITS ---
H&P: HPI History of Present Illness Date/Time: 26-year-old multiparous admitted for laparoscopic tubal ligation. She desires permanent and irreversible sterilization. Alternatives including but not exclusive of pills patches, injections, implants etc. reviewed. She understands the failure rate to be 10/999 and the subsequent risk of the failure rate and risk of ectopic . Risks And benefits of this procedure were reviewed in great detail. She had all questions answered and asked to proceed she did received the [employer]CO[employer] handout entitled sterilization for men and women Chief Complaint: Desires permanent sterilization Review of Systems Review of Systems: All systems reviewed & are unremarkable except as noted in HPI and below PMFSH Past Medical History Medical History Anemia IUP (intrauterine ), incidental Surgical History Surgical History No pertinent past surgical history Family History Family History Father Lupus Alcohol abuse Grandparent Prostate carcinoma Other Heart disease Social History Social History Social History: The patient is and has 2 children. 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 She does not use any alcohol marijuana or illicit drugs. 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 Code status full code Smoking status: Never smoker Alcohol intake: current Alcohol use details: 1/MONTH Substance use: never Substance use type: does not use Living arrangements: with family Spiritual care concerns: No Meds Home Medications and Allergies Home Medications Medication Instructions Recorded Confirmed Type prenat.vits,milli,dpr-vnei-emwiz 1 tablet PO DAILY 08/04/21 12/20/21 History Allergies Allergy/AdvReac Type Severity Reaction Status Date / Time No Known Allergies Allergy Unknown Verified 12/20/21 12:58 Exam Const: General: no acute distress Eyes: General: appearance normal, both eyes and all related structures Neck: Neck: supple and no JVD Thyroid: thyroid normal Resp: Effort & Inspection: normal respiratory effort Auscultation: clear to auscultation bilaterally Cardio: Rate: regular rate Rhythm: regular rhythm GI: Inspection: non-distended GI Palp: Yes Soft to palpation, No Tenderness to palpation present (GI) and No Guarding due to palpation present (GI) Auscultation: normal bowel sounds : General: Yes bladder normal to palpation External Female Exam: normal external appearance Speculum Exam - Vagina: normal vaginal discharge and No vaginal bleeding Speculum Exam - Cervix: nontender Bimanual exam- vagina & uterus: bladder normal to palpation and No Cervical tenderness present OB/external & speculum: No vaginal bleeding Skin: General skin exam: no rashes or lesions noted Extrem: General: normal to inspection and no edema Psych: Mental Status: mental status grossly normal Affect: normal affect Assessment and Plan Additional Plan Impression: Desires permanent sterilization Plan: Laparoscopic tubal ligation
[2021-12-29] VITALS (13 sets, daily range): BP systolic 110–151; BP diastolic 53–90; PULSE 72–689; RESP 15–24; TEMP 36.3–36.6; O2SAT 93–100
--- NOTE | 2021-12-29 07:20 | WPDHPUPDATE1 ---
History and Physical Update Update Date/Time: 12/29/21 07:20 History and Physical has been reviewed, including an updated exam of the patient. There are NO changes in the patient's condition. Risks, benefits, and alternatives have been discussed and questions answered. Patient agrees to proceed with procedure.
[2021-12-29] MEDS: ACETAMINOPHEN 500 MG TABLET 1000 MG PO (10:00)
[2021-12-29] MEDS: LACTATED RINGERS 1,000 ML 30 ML IV CONT ×2 (10:05→11:49)
--- NOTE | 2021-12-29 10:21 | SUR.PREOP ---
1015-PT BREAST PUMPING AT THIS TIME-PRIVACY PROVIDED.
--- NOTE | 2021-12-29 10:43 | WPDANESEPPF ---
Anes - Initial Pre Proc Eval Procedure: Operation Date: 12/29/21 11:30 Proposed Procedures p Laparoscopic Bilateral Tubal Sterilization with Fallopian Rings - Eduardo Sosa MD Date/Time: 12/29/21 10:43 Surgeon: Eduardo Sosa MD Pre Op Diagnosis: desires sterilization Patient Data Age: 26 Gender: F Height: 1.57 m Weight: 74.6 kg Last Vital Signs Temp 36.6 C 12/29/21 09:39 Pulse 72 12/29/21 09:39 Resp 20 12/29/21 09:39 BP 110/53 L 12/29/21 09:39 Pulse Ox 100 12/29/21 09:39 Allergies Allergy/AdvReac Type Severity Reaction Status Date / Time No Known Allergies Allergy Unknown Verified 12/29/21 09:40 Home Medications Medication Instructions Recorded Confirmed Type prenat.vits,milli,bfa-yxxy-gjtnr 1 tablet PO DAILY 08/04/21 12/29/21 History hydrocodone-acetaminophen 1 tablet PO Q4H PRN #20 tablet 12/29/21 Rx Patient hx anesthesia problems: none Family hx anesthesia problems: none Results Review: All pre-operative results and documents have been reviewed as part of the pre-operative evaluation. [facility] Past Medical History Medical History Anemia IUP (intrauterine ), incidental Surgical History Surgical History No pertinent past surgical history Family History Family History Father Lupus Alcohol abuse Grandparent Prostate carcinoma Other Heart disease Social History Social History Social History: The patient is and has 2 children. 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 She does not use any alcohol marijuana or illicit drugs. 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 Code status full code Smoking status: Never smoker Alcohol intake: current Alcohol use details: 1/MONTH Substance use: never Substance use type: does not use Living arrangements: with family Spiritual care concerns: No Anes - Eval Final PreProcedure Day of Procedure 12/29/21 10:43 Patient weight: obese Heart: regular rate and rhythm Lungs: clear to auscultation and normal air movement Airway: Mallampati scale class II Neurological: alert and oriented Last oral intake: >/= 8 hours ASA classification: II Emergent: no Anesthetic plan: proceed Anesthesia type and monitoring: general ETT and standard monitoring Results Review: All pre-operative results and documents have been reviewed as part of the pre-operative evaluation. Informed Consent: The patient's anesthetic plan and its attendant risks and benefits were discussed with the patient/family/POA. Questions were solicited and answers provided to the satisfaction of the patient/family/POA.
[2021-12-29] MEDS: KETOROLAC 15 MG/ML VIAL (*BKC) IV PUSH ×2 (11:09→13:27)
--- NOTE | 2021-12-29 11:45 | P.OP_ITS ---
Procedure Note - Detailed Date of Procedure 12/29/21 Pre-op Diagnosis desires sterilization Post-op Diagnosis Same Procedure Performed Laparoscopic bilateral tubal ligation via silastic rings Surgeon Eduardo Sosa MD Anesthesia General Indications Sh 26-year-old multipara desires permanent sterilization Findings Normal-appearing ovaries tubes and uterus. Normal-appearing appendix. Normal- appearing gallbladder and liver edge Description of Procedure The patient was prepped draped in normal sterile fashion placed in the dorsal lithotomy position. Under excellent general endotracheal anesthesia weighted speculum placed in posterior fornix vagina. Anterior lip of the cervix grasped with single-tooth tenaculum and the Yeung's cannula inserted to the cervix attached to the single-tooth to be used for uterine manipulation bladder was emptied of clear urine. The weighted speculum was removed. Gloves were changed. An infraumbilical incision made in the Veress needle passed the abdomen. Abdomen filled with CO2 gas to 15mm the 5mm trocar advanced in the abdomen under direct visualization and no injury seen. Patient placed in Trendelenburg and a suprapubic incision made. The 8mm trocar advanced under direct visualization assuring no injury. Two the above findings were noted abnormalities were seen. The right fallopian tube was grasped and a good knuckle of tube formed with excellent blanching. In like fashion the opposite the fallopian tube was grasped in good knuckle of tube placed at the midportion with excellent blanching. Photo documentation was undertaken the lower site removed. The gas removed abdomen the upper site removed. The incisions closed with 4-0 Monocryl glue. Patient went to recovery in satisfactory condition. All sponge, needle, instrument counts were correct. There were no complications Estimated Blood Loss 5 Drains No Packing No Pathology None sent Complications No immediate complications Condition Stable Disposition PACU
[2021-12-29] MEDS: fentaNYL CITRATE INJ (*CRX) 100 MCG/2 ML VIAL 25 MCG IV PUSH ×8 (12:00→12:23)
[2021-12-29] MEDS: HYDROmorphone HCL INJ (*CRX) 1 MG/ML SYR 0.5 MG IV PUSH ×4 (12:34→13:21)
[2021-12-29] MEDS: ONDANSETRON INJ 4 MG/2 ML VIAL IV PUSH (14:04)
[2021-12-29] MEDS: SCOPOLAMINE 1.5 MG PATCH TRANSDERM (15:29)
== END 2021-12-29 15:30 | disposition home or self-care (01) ==
PROVIDERS: Visit Provider Obstetrics & Gynecology
PROC: (CPT 58671; principal; 2021-12-29 11:30)
DX: Z30.2 Encounter for sterilization (principal); D64.9 Anemia, unspecified; E66.9 Obesity, unspecified; Z68.30 Body mass index [BMI] 30.0-30.9, adult
CPT/HCPCS: 58671; A4264; A9270; J0330; J1100; J1170; J1885; J2250; J2405; J2704; J3010; J7120

== ENCOUNTER 2025-06-18 00:15 | Day surgery (SDC) | payer OTHER, SELFPAY ==
--- NOTE | 2025-06-10 15:45 | SUR.PREOP ---
[facility] has started construction of its new state of the art ER which will open Spring 2026. With this, we anticipate parking may be a challenge for some our surgical patients and families. Parking spaces are limited but are available for all Surgical, obstetrics, and ER patients sharing this lot. If you arrive and find you are having a hard time finding a parking space, please note that we understand the challenges, please drive around the hospital and park near Hospital Entrance 1. When you enter this entrance, you can ask a volunteer to direct or take you back to the surgical waiting area to check in. We appreciate everyone?s understanding of these expected challenges while we build for your future. Report to the Outpatient Waiting Room, entrance under the green pavilion located off [address], at time __630am on date __06/18/25 . Planned Procedure Time: ___830am .? Time changes happen often and if your time is changed the preop area will call you the afternoon before. - You and your visitor will be asked to self-screen and do not enter if you have any COVID symptoms. Please call surgeon if you need to reschedule. - A mask is optional within the hospital at this time. Patients may have clear liquids (water, carbonated beverages, clear teas, apple juice) until 3 hours prior to surgery with a maximum of 20 ounces. - No food from midnight until time of surgery and no smoking, or chewing tobacco (or any form of nicotine). No chewing gum, candy or mints. Take only the following medications with a SIP of water on the morning of surgery: __None DO NOT STOP ANY OF YOUR OTHER PRESCRIPTION MEDICATIONS PRIOR TO SURGERY EXCEPT THE FOLLOWING Hold all vitamins and supplements for 3 days per anesthesiologist. Medications to discontinue per physician ___None Date to take last dose____N/a Please no make-up, nail wallisian, hairspray, perfume, deodorant, or body powder the day of surgery.? No jewelry (including any body piercings) or valuables the day of surgery, leave them at home.? Please take a shower or bath the night before, or the morning of, surgery with an antibacterial soap.? Wear comfortable, loose fitting clothing.? - Jewelry must be removed prior to entering the operating room.? Rings and piercings that are not removed may be cut off. - The hospital will not accept responsibility for valuables.? - Please leave all valuables, including medications, at home the day of surgery. If you are going home after surgery, a licensed retail delivery driver must drive you home.? - NO public transportation without another adult if you receive anesthesia. - We recommend that an adult stay with you for 24 hours following discharge. - We also recommend that you do not drive, make important decision, drink alcoholic beverages, or take any drugs that were not prescribed by your health care provider for at least 24 hours after your discharge time. Follow any additional instructions given to you from your surgeon. Telephone instructions given to __Ehsan and asked if any additional questions and then verbalized understanding. Patient advised to call surgeon office or pre surgery nurse liaison [phone] if any additional questions.
[2025-06-10 15:49] VITALS: BMI 31.1
--- NOTE | 2025-06-15 07:30 | P.HP_ITS ---
H&P: HPI History of Present Illness Date/Time: 06/15/25 07:30 Chief Complaint: Condyloma acuminata Narrative: Very pleasant 29-year-old female admitted for CO2 laser with perirectal condyloma acuminata. Submitted ongoing problem and was not cured with office oriented procedures risks and benefits of the procedure reviewed. She had all questions answered. She asked to proceed. Review of Systems Review of Systems: All systems reviewed & are unremarkable except as noted in HPI and below PMFSH Past Medical History Medical History Anemia IUP (intrauterine ), incidental Surgical History Surgical History No pertinent past surgical history Family History Family History Father Lupus Alcohol abuse Grandparent Prostate carcinoma Other Heart disease Social History Social History Social History: The patient is and has 2 children. 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 She does not use any alcohol marijuana or illicit drugs. Her is a durable power litigation attorney associate for healthcare. Code status full code Smoking status: Never smoker Alcohol intake: current Drinks per week: 1 Alcohol use details: 1/MONTH Substance use: never Substance use type: does not use Living arrangements: with family Spiritual care concerns: No Meds Home Medications and Allergies Home Medications ?Medication ?Instructions ?Recorded ?Confirmed ?Type prenat.vits,milli,sza-qmea-tfhvy 1 tablet PO DAILY 08/0406/10/25 History Allergies Allergy/AdvReac Type Severity Reaction Status Date / Time No Known Allergies Allergy Unknown Verified 06/10/25 15:48 Exam Const: General: cooperative, healthy appearing and comfortable Nutritional Appearance: average body habitus Orientation/consciousness: oriented to person, oriented to place and oriented to time Resp: Effort & Inspection: normal respiratory effort Cardio: Rate: regular rate Rhythm: regular rhythm Heart sounds: S1 normal heart sound present and S2 normal heart sound present GI: Inspection: normal to inspection : External Female Exam: normal external appearance (Multiple condyloma acuminata present) Speculum Exam - Vagina: normal appearance of the vagina Speculum Exam - Cervix: normal appearance of the cervix Bimanual exam- vagina & uterus: non-tender Bimanual Exam- Adnexa, other: normal adnexae Assessment and Plan Assessment and plan (1) Condyloma acuminata: Code(s): A63.0 - Anogenital (venereal) warts Status: Acute Plan Proceed with CO2 ablation condyloma acuminata
[2025-06-18] VITALS (9 sets, daily range): BP systolic 111–132; BP diastolic 64–84; PULSE 69–86; RESP 10–18; TEMP 36.3–36.6; O2SAT 92–100; BMI 32.1
--- OUTSIDE RECORDS SUMMARY | 2025-06-18 00:18 | XMS_ITS | Clinical Summary ---
Author Organization [facility] Address [address] [place] [address] Care Team Providers Care Career Development Counselor Name Role Phone Cynthia Carvalho PA-C Primary Care Provider [phone] Eduardo Chen MD Unavailable [phone] Allergies No known active allergies Medications WEGOVY 1 mg/dose injection (PEN) Inject 1 mg into the skin once a week. 06/16/2024 Active Active Problems Problem Noted Date Diagnosed Date Herpes labialis 05/25/2022 Encounters Date Type Department Care Team Description 05/06/2025 10:00 AM CDT Office Visit [facility] [address] [place] [address] Carrie Marie, KELLY MACHINE OPERATOR-BC Ankle/foot Pain (L foot, states that it has not hurt for 1.5 days. Mentions that it was worse over the weekend. Mentions that she did have a fall approx 9 months to 1 year ago, denies being seen for it. OTC has been taking Tylenol and Ibuprofen PRN) 05/06/2025 Travel 04/21/2025 MyChart Message Enc [facility] [address] [place] [address] Cynthia Carvalho PA-C Left ankle from Last 3 Months Immunizations Immunization Administration Dates Next Due Dtap (Acel-Immune) 11/22/1998 Dtp/Hib (Tetramune) 12/22/1996, 6,05/21/1995,1994 Fluzone 6 Months+ Quad (0.5 mL Prefilled Syringe) 05/25/2022 Hepatitis B Pediatric 09/09/1995,05/21/1995,02/01 Influenza (Generic) 05/28/2014 MMR (MMRII) 11/20/2014,11/22/1998,12/22/1996 Polio Opv (Generic) 11/22/1998, 6,05/21/1995,1994 Tdap (Generic) 08/18/2021 Family History Medical History Relation Comments Alcohol/Drug Father Lupus Father Alcohol Abuse Half-brother 1 Alcohol Abuse Half-brother 2 No Known Problems Half-brother 3 No Known Problems Half-sister No Known Problems Maternal Grandfather No Known Problems Maternal Grandmother Obesity Mother bariatric surger y Testicular cancer Paternal Grandfather T[place]or Paternal Grandmother No Known Problems Son 1 No Known Problems Son 2 Relation Status Comments Father Alive Half-brother 1 Alive Half-brother 2 Alive Half-brother 3 Alive Half-sister Alive Maternal Grandfather Alive Maternal Grandmother Alive Mother Alive Paternal Grandfather Paternal Grandmother Son 1 Alive Son 2 Alive Social History Tobacco Use Types Packs/Day Years Used Date Smoking Tobacco: Never Smokeless Tobacco: Never Tobacco Cessation:Counseling Given: No Alcohol Use Standard Drinks/Week Comments Yes 0 (1 standard drink = 0.6 oz pur e alcohol) on occasion PHQ-2 Answer Date Recorded Patient Health Questionnaire-2 Score 0 05/06/2025 Comments No Sex and Gender Information Value Date Recorded Sex Assigned at Not on file Legal Sex Female 11:26 PM SERVICE DESK SPECIALIST Gender Identity Not on file Sexual Orientation Not on file Last Filed Vital Signs Vital Sign Reading Time Taken Comments Blood Pressure 116/74 05/06/2025 10:13 AM CDT Pulse 74 05/06/2025 10:13 AM CDT Temperature 36.9 C (98.4 F) 05/06/2025 10:13 AM CDT Respiratory Rate 18 05/06/2025 10:13 AM CDT Oxygen Saturation 99% 05/06/2025 10:13 AM CDT Inhaled Oxygen Concentration - - Weight 77.3 kg (170 lb 6 oz) 05/06/2025 10:13 AM CDT Height 160 cm (5' 3) 05/06/2025 10:13 AM CDT Body Mass Index 30.18 05/06/2025 10:13 AM CDT Plan of Treatment Health Maintenance Due Date Last Done Comments Cervical Cancer Screening Pap Smear (Age 30 to 64) Every 3 Years 1994 Annual Physical 1997 HPV Vaccines (1 - 3-dose SCDM series) 2021 Cervical Cancer Screening Pap with HPV Testing (Age 30 to 64) Every 5 Years 2024 02/28/2022 Cervical Cancer Screening with HPV 2024 COVID-19 Vaccine ( season) 2025 05/30/2021, 05/01/2021 Influenza Adult (#1) 2025 05/25/2022, 05/28/20 14 DTaP, Tdap and Td Vaccines (3 - Td or Tdap) 08/18/2031 08/18/2021, 11/22/1998, 12/22/1996, Additional history exists Hepatitis B Vaccines Completed 09/09/1995, 05/21/1995, 02/19/1995 Hepatitis C Completed 07/09/2022 PHQ-2 (Physician Forsan) Completed 05/06/2025 Meningococcal B Vaccine Aged Out No l onger eligible based on patient's age to complete this topic Meningococcal Vaccine Aged Out No tosha danika eligible based on patient's age to complete this topic Pneumococcal Vaccine: Pediatrics (0 to 5 Years) and At-Risk Patients (6 to 49 Years) Aged Out No longer eligible based on patient's age to complete this topic RSV Immunizations Under 20 Months Aged Out No longer eligible based on patient's age to complete this topic Procedures Procedure Name Priority Date/Time Associated Diagnosis Comments HEPATITIS C ANTIBODY Routine 07/09/2022 9:42 AM SERVICE DESK SPECIALIST Need for hepatitis C screening test OUTSIDE CYTOPATH CERV/VAG INTERPRET (PAP) 02/28/2022 from Last 3 Months or Most Recently Relevant to Health Maintenance Results * HEPATITIS C ANTIBODY (07/09/2022 9:42 AM SERVICE DESK SPECIALIST) HEPATITIS C AB NON-REACTI VE NON-REACTI VE 07/09/2022 4:28 PM SERVICE DESK SPECIALIST [facility] 07/09/2022 9:42 AM SERVICE DESK SPECIALIST Cynthia Carvalho PA-C LABORATORY Final Resu lt [facility] [address] [place] [address], * PAP SMEAR WITH HPV (02/28/2022) 02/28/2022 Narrative 02/28/2022 Ordered by an unspecified provider. Documents Scanned SCANNING Final Result from Last 3 Months or Most Recently Relevant to Health Maintenance Insurance R Care Teams Career Development Counselor Relationship Specialty Start Date End Date Cynthia Carvalho PA-C [address] [facility] [address] [place] [address] PCP - General PHYSICIAN CLINICAL NUTRITIONIST 05/18/22 Edurado Chen MD [facility] [address] [place] [address] OBGYN 05/25/22
--- OUTSIDE RECORDS SUMMARY | 2025-06-18 00:18 | XMS_ITS | Encounter Summary ---
Author Organization [facility] Address [facility] [place] [address] Care Team Providers Care Laborer Vegetable Farm Name Role Phone Cynthia Carvalho PA-C Primary Care Provider [phone] Eduardo Chen MD Unavailable [phone] Encounter Details Date Type Department Care Team (Late st Contact Info) Description 04/21/2025 [facility] Message [facility] [address] [place] [address] Cynthia Carvalho PA-C [address] [place] [address] Left ankle Social History Tobacco Use Types Packs/Day Years Used Date Smoking Tobacco: Never Smokeless Tobacco: Never Alcohol Use Standard Drinks/Week Comments Yes 0 (1 standard drink = 0.6 oz pur e alcohol) on occasion PHQ-2 Answer Date Recorded Patient Health Questionnaire-2 Score 0 08/20/2024 Comments No Sex and Gender Information Value Date Recorded Sex Assigned at Not on file Legal Sex Female 11:26 PM FINISHED CIGAR MAKER Gender Identity Not on file Sexual Orientation Not on file documented as of this encounter Plan of Treatment Not on file documented as of this encounter Visit Diagnoses Not on filedocumented in this encounter Care Teams Laborer Vegetable Farm Relationship Specialty Start Date End Date Cynthia Carvalho PA-C [address] [place] [address] PCP - General PHYSICIAN PARKING REGULATION ENFORCEMENT OFFICER 05/18/22 Eduardo Chen MD [facility] [address] [place] [address] OBSUHAS 05/25/22 documented as of this encounter
--- OUTSIDE RECORDS SUMMARY | 2025-06-18 00:18 | XMS_ITS | Encounter Summary ---
Author Organization [facility] Address [address] [place] [address] Care Team Providers Care Hand Painter Name Role Phone Cynthia Carvalho PA-C Primary Care Provider [phone] Eduardo Chen MD Unavailable [phone] Encounter Details Date Type Department Care Team (Late st Contact Info) Description 10/31/2022 [facility] Message [facility] [address] [place] [address] Cynthia Carvalho PA-C [address] [place] [address] Strep Social History Tobacco Use Types Packs/Day Years Used Date Smoking Tobacco: Never Smokeless Tobacco: Never Alcohol Use Standard Drinks/Week Comments Yes 0 (1 standard drink = 0.6 oz pur e alcohol) on occasion PHQ-2 Answer Date Recorded Patient Health Questionnaire-2 Score 0 2022 Comments No Sex and Gender Information Value Date Recorded Sex Assigned at Not on file Legal Sex Female 11:26 PM NECK BAND MAKER Gender Identity Not on file Sexual Orientation Not on file COVID-19 Exposure Response Date Recorded In the last 10 days, have yo u been in contact with someone who was confirmed or suspected to have Coronavirus/COVID-19? No / Unsure 2022 9:07 AM NECK BAND MAKER documented as of this encounter Progress Notes * Elke Danielle RN - 10/31/2022 10:29 AM CST Please advise? BAND MAKER documented in this encounter Plan of Treatment Not on file documented as of this encounter Visit Diagnoses Not on filedocumented in this encounter Care Teams Hand Painter Relationship Specialty Start Date End Date Cynthia Carvalho PA-C [address] [facility] [address] [place] [address] PCP - General PHYSICIAN WOOLING MACHINE OPERATOR 05/18/22 Eduardo Chen MD [facility] [address] [place] [address] OBGYRafy 05/25/22 documented as of this encounter
--- OUTSIDE RECORDS SUMMARY | 2025-06-18 00:18 | XMS_ITS | Clinical Summary ---
Author Organization [facility] Address [address] [address] [place] [address] Phone Care Team Providers Care Technician Support Association Name Role Phone Unavailable Primary Care Provider Unavailabl e Active Problems No known active problems Encounters Date Type Department Care Team Description 06/01/2025 External Device Data STL ABSTRACTION Provider, Abstract 04/07/2025 External Device Data STL ABSTRACTION Provider, Abstract 04/06/2025 External Device Data STL ABSTRACTION Provider, Abstract from Last 3 Months Social History Tobacco Use Types Packs/Day Years Used Date Smoking Tobacco: Never Assessed Comments Unknown Sex and Gender Information Value Date Recorded Sex Assigned at Not on file Legal Sex Female 11:11 AM CDT Gender Identity Not on file Sexual Orientation Not on file Last Filed Vital Signs Vital Sign Reading Time Taken Comments Blood Pressure 112/58 08/18/2024 8:47 AM FINANCIAL SERVICES SPECIALIST Pulse 85 08/18/2024 8:47 AM FINANCIAL SERVICES SPECIALIST Temperature 36.8 C (98.3 F) 08/18/2024 8:47 AM FINANCIAL SERVICES SPECIALIST Respiratory Rate 19 08/18/2024 8:47 AM FINANCIAL SERVICES SPECIALIST Oxygen Saturation 98% 08/18/2024 8:47 AM FINANCIAL SERVICES SPECIALIST Inhaled Oxygen Concentration - - Weight 70.3 kg (155 lb) 08/18/2024 8:47 AM FINANCIAL SERVICES SPECIALIST Height 157.5 cm (5' 2) 08/18/2024 8:47 AM FINANCIAL SERVICES SPECIALIST Body Mass Index 28.35 08/18/2024 8:47 AM FINANCIAL SERVICES SPECIALIST Plan of Treatment Health Maintenance Due Date Last Done Comments HPV/Cotest (21-29) 2015 HPV VACCINES (1 - 3-dose SCD M series) 2021 CERVICAL CANCER SCREENING 2024 HPV/Cotest (30-65) 2024 PAP SMEAR 2024 INFLUENZA VACCINE (#1) 2025 05/25/2022 DTAP/TDAP/TD VACCINES (7 - T d or Tdap) 08/18/2031 08/18/2021, 11/22/1998, 12/22/1996, Additional history exists HEPATITIS B VACCINES Completed 09/09/1995, 05/21/1995, 02/19/[address] [place] [address] [place] [address]
--- OUTSIDE RECORDS SUMMARY | 2025-06-18 00:18 | XMS_ITS | Clinical Summary ---
Author Organization [facility] Address [address] [place] [address] Care Team Providers Care Pharmacist Critical Care Name Role Phone Unavailable Primary Care Provider Unavailabl e Source Comments [facility],non-owned Affiliates and Associated Physician Practices is amultiple site organization consisting of ambulatory clinics and hospital sitesin [place], [place], [place] and [place]. This disclosure is being madepursuant to the Care Everywhere program and may not contain all information available regarding this patient. Last updated 18.[facility] Allergies No known active allergies Medications * Be aware that medications may not be up to date on this document. Alwaysverify current medications with the patient. azithromycin (Zithromax) 250 mg/tab packetIndicatio ns:URI with cough and congestion 2 tablets day 1, then 1 tablet daily for 4 days 1 packet 05/31/2025 Active promethazine-DM syrupIndication s:URI with cough and congestion Take 5 mL by mouth every 6 hours as needed for Cough 100 mL 05/31/2025 Active predniSONE (Deltasone) 20 MG tabletIndicatio ns:URI with cough and congestion Take 1 (one) tablet by mouth once daily for 5 days 5 tablet 05/31/2025 06/05/20 25 Active Problems No known active problems Encounters Date Type Department Care Team Description 05/31/2025 6:30 PM CDT Office Visit [facility] [address] [place] [address] [place] [id number] Adele [place], OCCUPATIONAL HEALTH AND SAFETY MANAGER-SENIOR PATIENT ACCOUNT REPRESENTATIVE Bilateral acute serous otitis media, recurrence not specified (Primary Dx); URI with cough and congestion; Encounter for screening for COVID-19; Cough in adult 05/31/2025 Travel from Last 3 Months Social History Tobacco Use Types Packs/Day Years Used Date Smoking Tobacco: Never Assessed PHQ-2 Answer Date Recorded Patient Health Questionnaire-2 Score 0 05/31/2025 Comments Unknown Sex and Gender Information Value Date Recorded Sex Assigned at Female 05/31/2025 6:16 PM CDT Legal Sex Female 6:15 PM CDT Gender Identity Female 05/31/2025 6:16 PM CDT Sexual Orientation Not on file Last Filed Vital Signs Vital Sign Reading Time Taken Comments Blood Pressure 112/77 05/31/2025 6:34 PM CDT Pulse 81 05/31/2025 6:34 PM CDT Temperature 36.6 C (97.8 F) 05/31/2025 6:34 PM CDT Respiratory Rate 16 05/31/2025 6:34 PM CDT Oxygen Saturation 99% 05/31/2025 6:34 PM CDT Inhaled Oxygen Concentration - - Weight 79.2 kg (174 lb 8 oz) 05/31/2025 6:34 PM CDT Height 157.5 cm (5' 2) 05/31/2025 6:34 PM CDT Body Mass Index 31.92 05/31/2025 6:34 PM CDT Plan of Treatment Health Maintenance Due Date Last Done Comments HIV SCREENING 2009 DTAP/TDAP/TD VACCINES (1 - Tdap) 2013 HEPATITIS B VACCINE (1 of 3 - 19+ 3-dose series) 2013 PAP SMEAR 2015 HPV VACCINE (1 - 3-dose SCDM series) 2021 COVID-19 VACCINE (3 - 2024-2 6 season) 2025 05/30/2021, 05/01/2021 INFLUENZA VACCINE (#1) 2025 , 05/28/2014 ZOSTER VACCINE (1 of 2) 2044 HEPATITIS C SCREENING Completed 07/09/2022 DEPRESSION SCREENING Completed 05/31/2025 HIB VACCINE Aged Out No longer eligi ble based on patient's age to complete this topic MENINGOCOCCAL (Group B) VACCINE SHARED DECISION-MAKING Aged Out No longer eligible based on patient's age to complete this topic MENINGOCOCCAL GROUPS A/C/Y/W VACCINE Aged Out No longer eligible b ased on patient's age to complete this topic PNEUMOCOCCAL VACCINE Aged Out No long er eligible based on patient's age to complete this topic Procedures Procedure Name Priority Date/Time Associated Diagnosis Comments SARS-COV-2 (COVID-19) AG W OPTIC (AMB) POCT Routine 06/01/2025 9:03 AM CDT Cough in adult from Last 3 Months Results * SARS-COV-2 (COVID-19) AG W OPTIC (AMB) POCT (06/01/2025 9:03 AM CDT) SARS-CoV-2 Ag Negative Negative [facility] Lot # [id number] [facility] Expiration Date 04/25/2026 [facility] COVID Internal Control Acceptable Acceptable [facility] Microbiology SPECIMEN FROM NASAL FOSSAE / Unknown 06/01/2025 9:03 AM CDT [facility] - POINT OF CARE ORDERABL ES Final Result [facility] [address] [facility] [address] [place] [address], [facility] [phone] from Last 3 Months Insurance [facility]
--- NOTE | 2025-06-18 06:21 | WPDHPUPDATE1 ---
History and Physical Update Update Date/Time: 06/18/25 06:21 History and Physical has been reviewed, including an updated exam of the patient. There are NO changes in the patient's condition. Risks, benefits, and alternatives have been discussed and questions answered. Patient agrees to proceed with procedure.
[2025-06-18] MEDS: LACTATED RINGERS 1,000 ML 30 ML IV CONT ×2 (06:55→09:51)
[2025-06-18 07:10] LABS: BEDSIDEPREGUCG Negative (Negative)
--- NOTE | 2025-06-18 07:45 | P.PNAN_ITS ---
Anes - Initial Pre Proc Eval Procedure: Operation Date: 06/18/25 08:30 Proposed Procedures p CO2 Laser of Perirectal Condyloma - Eduardo Sosa MD Date/Time: 06/18/25 07:45 Surgeon: Eduardo Sosa MD Pre Op Diagnosis: Perirectal condyloma Patient Data Age: 29 Gender: F Height: 1.57 m Weight: 79.8 kg Last Vital Signs Temp 36.6 C 06/18/25 07:00 Pulse 86 06/18/25 07:00 Resp 18 06/18/25 07:00 BP 114/68 06/18/25 07:00 Pulse Ox 100 06/18/25 07:00 O2 Del Method Room Air 06/18/25 07:00 Allergies Allergy/AdvReac Type Severity Reaction Status Date / Time No Known Allergies Allergy Unknown Verified 06/18/25 06:50 Home Medications ?Medication ?Instructions ?Recorded ?Confirmed ?Type prenat.vits,milli,img-pwji-wxohm 1 tablet PO DAILY 08/0406/10/25 History hydrocodone 5 mg-acetaminophen 325 1 tablet PO Q4H PRN pain #14 tabs 06/18/25 Rx mg tablet Laboratory Tests 06/18/25 06:55 POC Urine HCG, Qual Negative (Negative) Patient hx anesthesia problems: none Family hx anesthesia problems: none Results Review: All pre-operative results and documents have been reviewed as part of the pre- operative evaluation. [facility] Past Medical History Medical History Anemia IUP (intrauterine ), incidental Surgical History Surgical History No pertinent past surgical history Family History Family History Father Lupus Alcohol abuse Grandparent Prostate carcinoma Other Heart disease Social History Social History Social History: The patient is and has 2 children. 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 She does not use any alcohol marijuana or illicit drugs. Her is a durable power assistant county attorney for healthcare. Code status full code Smoking status: Never smoker Alcohol intake: current Drinks per week: 1 Alcohol use details: 1/MONTH Substance use: never Substance use type: does not use Living arrangements: with family Spiritual care concerns: No Anes - Eval Final PreProcedure Day of Procedure 06/18/25 07:45 Patient weight: obese Heart: regular rate and rhythm Lungs: clear to auscultation Airway: Mallampati scale class II Neurological: alert and oriented Last oral intake: >/= 8 hours ASA classification: II Emergent: no Anesthetic plan: proceed Anesthesia type and monitoring: general GIVS and standard monitoring Results Review: All pre-operative results and documents have been reviewed as part of the pre- operative evaluation. Informed Consent: The patient's anesthetic plan and its attendant risks and benefits were discussed with the patient/family/POA. Questions were solicited and answers provided to the satisfaction of the patient/family/POA.
[2025-06-18] MEDS: SILVER SULFADIAZINE 1% CR 50 GM JAR (*BKC) 1 APPLIC TOPICAL (08:58)
--- NOTE | 2025-06-18 09:06 | W.PM.PROC2 ---
Procedure Note - Detailed Date of Procedure 06/18/25 Pre-op Diagnosis Perirectal condyloma Post-op Diagnosis Same Procedure Performed CO2 laser of condyloma acuminata Surgeon Eduardo Sosa MD Anesthesia General Indications 29-year-old multiple condyloma acuminata Findings Multiple acuminata condylomata Description of Procedure Patient is prepped draped normal sterile fashion placed in the dorsal lithotomy position. Under heavy sedate sedation the after cleaning the perineal area with Betadine it was thoroughly so with vinegar. The affected areas were burned to the 2nd layer there approximately 30 blood loss was essentially none this was then covered with the Silvadene cream patient went recovery in satisfactory condition. All sponge, needle, instrument counts were correct. There were no immediate complications Estimated Blood Loss 1 Drains No Packing No Pathology None sent Complications No immediate complications Condition Stable Disposition PACU
[2025-06-18] MEDS: fentaNYL CITRATE INJ (*CRX) 100 MCG/2 ML VIAL 25 MCG IV PUSH ×2 (09:52→09:54)
[2025-06-18] MEDS: oxyCODONE HCL (*CRX) 5 MG TAB IR PO (10:31)
== END 2025-06-18 11:10 | disposition home or self-care (01) ==
PROVIDERS: PCP Physician Assistant; Visit Provider Obstetrics & Gynecology
PROC: (CPT 46924; principal; 2025-06-18 08:30)
DX: A63.0 Anogenital (venereal) warts (principal); E66.9 Obesity, unspecified; Z68.32 Body mass index [BMI] 32.0-32.9, adult
CPT/HCPCS: 46924; A9270; J1100; J1200; J2003; J2250; J2405; J2704; J3010; J7120